=== PATIENT | male | born 1975 | race Caucasian/White ===

== ENCOUNTER 2021-08-07 11:29 | Emergency (ER) | payer BC, SELFPAY ==
[2021-08-07 11:30] VITALS: BP 146/114; PULSE 78; RESP 18; TEMP 35.8; O2SAT 95; BMI 39.9
--- NOTE | 2021-08-07 11:51 | EDS_ITS ---
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 Other than potentially bursitis or tendinitis in the past he has had no significant right shoulder issues. He is never had right shoulder upper extremity surgery. He states today he was trying to lift a recliner and immediately on attempting to lift that he had severe pain in his right shoulder. Now he has decreased range of motion and pain. Prior similar symptoms: No Recent Illness/Hospitalization: No PFSH PFSH Medical History no medical history Home Medications NK 08/07/21 [History Last Taken Unknown] Allergy/AdvReac Type Severity Reaction Status Date / Time No Known Allergies Allergy Verified 08/07/21 11:31 Surgical History History of knee surgery Social History Smoking Status: Never smoker ROS ROS ED ROS Narrative Denies recent illness. Review of Systems ROS Unobtainable: Denies due to encephalopathy Constitutional Constitutional ED: Denies fever(s) Eyes Eyes: Denies change in vision ENT ENT ED: Denies ear pain Cardiovascular Cardiovascular: Denies chest pain Respiratory/Chest Respiratory/Chest: Denies dyspnea Gastrointestinal Gastrointestinal: Denies abdominal pain Genitourinary Genitourinary ED: Denies dysuria Musculoskeletal Musculoskeletal: Denies myalgias Integumentary Denies rash Neurologic Neurologic: Denies headache(s) Psychiatric Psychiatric: Denies depression Endocrine Endocrinology: Denies polyuria Hematologic/Lymphatic Hematologic/Lymphatic: Denies easy bruising Allergic/Immunologic Allergic/Immunologic ED: Denies urticaria EXAM Physical Exam Narrative Exam Narrative: 46-year-old male vital signs stable pressure is elevated 146/114. H EENT exam unremarkable. Neck nontender. Lungs are clear. Heart regular rhythm no murmur. Abdomen soft. Moving 3 of his 4 extremities without any difficulty. His right shoulder has mild tenderness to palpation but exquisite pain with passive range of motion. He has very limited range of motion. He has shoulder flexed at 90 degrees and internally rotated. If you try to externally rotate his shoulder is exquisite pain. He cannot lift it at all. Due to pain. The distal humerus, elbow, forearm wrist and hand are no ntender. 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 Normal radial pulse and sensation in the right hand. Const Vital Signs: 08/07/21 11:30 Temperature 96.5 F L Temperature Source Temporal Pulse Rate 78 Respiratory Rate 18 Blood Pressure 146/114 H Blood Pressure Mean 124 Pulse Ox 95 Oxygen Delivery Method Room Air Positive well nourished, well developed and obese; Negative for cachectic, contractures or unkempt General Appearance ED: well developed and NAD; Negative for unkempt, cachectic, contractures, cyanotic or diaphoretic Nutritional Appearance: obese; Negative for cachectic HEENT Reports moist mucous membranes normocephalic and atraumatic; Negative for trauma or tenderness Eyes PERRL and EOMs intact bilaterally Neck full ROM and supple General: Negative for tenderness Chest Wall inspection of chest normal and palpation of chest normal Resp normal respiratory effort and clear to auscultation bilaterally Effort and Inspection: Negative for pain with movement Auscultation: Negative for rales, rhonchi or wheezes Cardio regular rate, regular rhythm, S1 normal heart sound, S2 normal heart sound and no murmurs GI non-tender, non-distended and no masses Auscultation: normoactive bowel sounds Palpation: soft; Negative for tender or guarding Back/Spine no CVA tenderness General Back: Negative for CVA tenderness Cervical Spine: Negative for cervical spine tenderness Thoracic Spine / Upper Back: Negative for thoracic spinal tenderness Extremity normal to inspection and full ROM Extremity Narrative: Except right shoulder has mild pain to palpation. Limited range of motion held in internal rotation and 90 degrees of flexion. At the elbow. He is unable to do any lifting of the shoulder and has exquisite pain with passive rotation. There is no bony deformity. General Extremety ED: Negative for edema General Extremity: Negative for edema Neuro oriented x3, moves all extremities and no focal motor deficits Sensorium / Orientation: alert, oriented to person, oriented to place and oriented to time; Negative for orientation impaired or lethargic Motor Exam: strength 5/5 throughout Psych mental status grossly normal Appearance: Negative for unkempt Skin Lesions: no lesions Rashes: no rashes Trauma: no lacerations or abrasions MDM MDM MDM Narrative Medical decision making narrative: 46-year-old male has a right shoulder injury. This could be is just a shoulder strain. Clinically I do not think is dislocated. It could also be a rotator cuff tear. I cannot do a full exam due to his limited range of motion and pain. X-ray being obtained. He just wanted ibuprofen for pain. Repeat exam no change on 1218. Be discharged home with a sling. Follow-up with orthopedics for further evaluation of the shoulder strain versus a possible rotator cuff tear or other shoulder injury. If this does not improve he may need a shoulder MRI. Motrin and Tylenol for pain. Radiography Diagnostic Testing: Left shoulder x-ray 2 views shows no acute abnormality. No fracture or dislocation. Clinically this is what was expected. Interpreted by me. Discharge Plan Triage Chief Complaint: Upper Extremity Injury ED Provider: Gavino Bojorquez Dx/Rx/DC Orders Clinical Impression: Right shoulder strain Instructions: ED Shoulder Sprain Prescriptions: No Action NK RF: 0 Primary Care Provider: PIERCE,DEFINED Referrals: Wilian Franklin DO [STAFF PHYSICIAN] - As soon as possible NOT,DEFINED [Primary Care Provider] - Activity Restrictions/Additional Instructions: Ice to your shoulder. Motrin for pain and swelling. Sling on during the day off while resting, sleeping or bathing. Call and follow-up with the orthopedic doctor's office on Monday to get as soon as possible. This is either a strain muscle in your shoulder. Or potentially a rotator cuff tear. Due to your pain at this time range of motion we cannot evaluate for a rotator cuff injury currently. If that does not improve you may need an MRI of your shoulder. Disposition Disposition: Home, Self Care
--- NOTE | 2021-08-07 12:00 | RAD_ITS ---
STUDY: X-RAY - RIGHT SHOULDER REASON FOR EXAM: Male, 46 years old. lifting injury, felt popping in right shoulder, pain TECHNIQUE: 4 view(s) of the shoulder. COMPARISON: None. FINDINGS: Normal glenohumeral articulation. Normal acromioclavicular joint. Normal acromion. Normal humeral head and visualized proximal humerus. The soft tissue structures are unremarkable. There is no demonstrated fracture. Normal visualized pulmonary apex. RAD/Shoulder min 2 Views IMPRESSION: Normal x-ray examination of the shoulder. Electronically Signed: James Blair MD at 12:56 EDT ,
[2021-08-07] MEDS: Ibuprofen 400 MG Tablet 800 MG PO (12:03)
--- NOTE | 2021-08-07 12:28 | ED.RN ---
called for imaging to be placed on disk. pt from out of town need ffor orthopedic followup
== END 2021-08-07 13:08 | disposition home or self-care (01) ==
PROVIDERS: Emergency Provider Emergency Medicine; Visit Provider Emergency Medicine
DX: S46.911A Strain of unspecified muscle, fascia and tendon at shoulder and upper arm level, right arm, initial encounter (principal); E66.9 Obesity, unspecified; X58.XXXA Exposure to other specified factors, initial encounter
CPT/HCPCS: 73030; 99283